=== PATIENT | female | born 1995 | race Caucasian/White ===

== ENCOUNTER 2016-09-25 22:04 | Emergency (ER) | payer OTHER ==
[~2016-09-25 22:04] MED LIST: BENADRYL25 M1 PO; BENZONATATE PO; CLEOCIN PO; HYDROCORTISONE30 G2 TOP; MUCINEX PO; NO MEDICATIONS; PERCOCET 5-3251 TAB PO
[2016-09-25] MEDS ORDERED: PRENATAL FORMU1 EAC1 PO (22:47)
[2016-09-25 23:56] LABS: URINE SOURCE CLEAN CATCH
[2016-09-26 00:03] LABS: URINE APPEARANCE HAZY; URINE BILIRUBIN NEG (NEG); URINE BLOOD NEG (NEG); URINE COLOR YELLOW; URINE GLUCOSE NEG (NORM); URINE KETONE NEG (NEG); URINE LEUKOCYTE ESTERASE 2+ (NEG); URINE NITRATE NEG (NEG); URINE PH 6.5 (5-8); URINE PROTEIN NEG (NEG)
[2016-09-26 00:05] LABS: MICRO INDICATED? YES
[2016-09-26 00:06] LABS: CULTURE INDICATED? YES; URINE BACTERIA 1+ (NEG); URINE CRYSTALS CALCIUM OXALATE /[HPF]; URINE MUCUS PRESENT; URINE SQUAMOUS EPITHELIAL CELL OCCAS /[HPF]; URINE TRANSITIONAL EPI CELLS FEW /[HPF]
== END 2016-09-26 00:59 | disposition home or self-care (01) ==
LOC: SED 22:04
PROVIDERS: Physician Assistant Medical
DX: O99.89 Other specified diseases and conditions complicating pregnancy, childbirth and the puerperium (principal); N89.8 Other specified noninflammatory disorders of vagina; O22.42 Hemorrhoids in pregnancy, second trimester; Z3A.17 17 weeks gestation of pregnancy; Z90.49 Acquired absence of other specified parts of digestive tract; F17.210 Nicotine dependence, cigarettes, uncomplicated; Z91.012 Allergy to eggs; Z91.011 Allergy to milk products
CPT/HCPCS: 81003; 87086; 87210; 87808; 87905; 99283